=== PATIENT | female | born 2000 | race Hispanic/Latino ===

== ENCOUNTER 2019-01-18 00:30 | Emergency (ER) | payer SELFPAY ==
[2019-01-18] MEDS ORDERED: diphenhydrAMINE 25 MG CAP ONE (00:44)
[2019-01-18] MEDS ORDERED: Famotidine 20 MG TAB ONE (01:01)
== END 2019-01-18 01:12 | disposition home or self-care (01) ==
LOC: ERS 00:30
DX: L50.9 Urticaria, unspecified (principal)
CPT/HCPCS: 99283; Q0163

== ENCOUNTER 2023-04-08 20:12 | Emergency (ER) | payer OTHER, SELFPAY ==
[2023-04-08 21:11] LABS: SARS-CoV-2 NAA Rapid Test Not Detected (NotDetected)
== END 2023-04-08 22:15 | disposition home or self-care (01) ==
LOC: ERS 20:12
DX: J20.8 Acute bronchitis due to other specified organisms (principal)
CPT/HCPCS: 99283